=== PATIENT | female | born 1955 | race African-American/Black ===

== ENCOUNTER 2020-08-15 12:39 | Emergency (ER) | payer BC, OTHER ==
[~2020-08-15] VITALS: Ht 256.5 cm; Wt 81.7 kg
[2020-08-15] MEDS ORDERED: HYDROCODON-ACE1 EAC7 PO (14:37)
[2020-08-15] MEDS ORDERED: LIDODERM1 EACH TOP (14:37)
[2020-08-15] MEDS ORDERED: FLEXERIL PO (14:37)
[2020-08-15 14:54] VITALS: BP 138/79
== END 2020-08-15 15:04 | disposition home or self-care (01) ==
LOC: ER 12:39
DX: M54.5 Low back pain (principal); M79.662 Pain in left lower leg; R20.0 Anesthesia of skin; R20.2 Paresthesia of skin; V89.2XXA Person injured in unspecified motor-vehicle accident, traffic, initial encounter; Y93.I9 Activity, other involving external motion; Y92.488 Other paved roadways as the place of occurrence of the external cause; Y99.8 Other external cause status